=== PATIENT | female | born 1985 | race Two or more races ===

== ENCOUNTER 2020-09-23 01:13 | Emergency (ER) | payer MEDICAID ==
[~2020-09-23] VITALS: Ht 152.4 cm; Wt 57.0 kg
[2020-09-23 02:32] VITALS: BP 110/61
== END 2020-09-23 02:35 | disposition home or self-care (01) ==
LOC: ER 01:13
DX: H92.01 Otalgia, right ear (principal); F41.9 Anxiety disorder, unspecified; Z98.890 Other specified postprocedural states
CPT/HCPCS: 99282; 99283